=== PATIENT | female | born 1970 | race Caucasian/White ===

== ENCOUNTER → 2017-11-23 | Emergency (ER) | payer OTHER, MEDICARE ==
[~2017-11-23] VITALS: Ht 152.4 cm; Wt 61.2 kg
[~2017-11-23] MED LIST: DILANTIN100 M1 PO; FOLIC ACID1 M1 PO; Glucometer; HYDROXYZINE HCL25 M2 PO; METHADONE HCL5 MG PO; OXYCODONE HCL15 M1 PO; PHENOBARBITAL32.4 M1 PO; PROAIR HFA8.5 GM INH; [UNRECOGNIZED DRUG - SUPPLY]
--- NOTE | 2017-11-23 01:43 | ED AMS/SEIZURE/WEAK/DIZZY ---
History of Present Illness General Chief Complaint: Seizure Stated Complaint: BIBA SEIZURE Source: patient, EMS, friend Exam Limitations: no limitations Vital Signs & Intake/Output Vital Signs & Intake/Output Vital Signs Date Time Temp Pulse Resp B/P B/P Pulse O2 O2 Flow FiO2 Mean Ox Delivery Rate 11/23 0350 84 16 117/75 95 Room Air 11/23 0112 98 Room Air Room Air 11/23 0110 98.2 110 16 131/65 98 Room Air Allergies Coded Allergies: gluten (Intermediate, CELIAC'S DISEASE 08/20/17) latex (Intermediate, RASH 08/20/17) Penicillins (UNKNOWN 08/20/17) Triage Note: 47YO FEMALE TO RM 9 VIA AMB FROM HOME SP SEIZURE TONITE. PT'S BOYFRIEND STATES "PT HAD SEIZURE ACTIVITY X 2 MIN" UPON ARRIVAL A,A,O. PT HAD EPISODE OF VOMITING WHILE SEIZURE WAS OCCURRING. Triage Nurses Notes Reviewed? yes HPI: 47-year-old female with past medical history of seizures and back pain brought to ED by EMS with chief complaint of seizure episode. She was tearful while giving information. Patient reported that she was in her usual state of health since this evening. She was in her bed and feeling cold. Her boyfriend gave her blanket and all of sudden she started to have seizure-like activity that was witnessed by her boyfriend. According to her boyfriend who is on the bedside he told me that she had seizure-like activity for 2 minutes and that went away by itself. Patient denied any aura like symptoms before seizures. Patient denied any tongue bite or urinary or stool incontinence. Patient was feeling confused after seizure activity and having headache. She reported that she is compliant to her seizure medications. Patient denied chest pain, palpitation, nausea, diarrhea, constipation, abdominal pain, trauma, tongue bite, aura, urinary incontinence, bowel incontinence, trauma to head, blurry vision, fever and dysuria. According to her boyfriend she had multiple episodes of vomiting during seizure activity. But patient didn't know about this. According to her boyfriend patient has seizure activity every night before she went to sleep. Patient is seeing her neurologist for seizure medicine. Patient denied any use of alcohol. (Jason CAAL,[place]) Reconcile Medications Albuterol Sulfate (Proair Hfa) 90 MCG HFA.AER.AD 2 PUF INH Q4-6 PRN PRN SHORTNESS OF BREATH (Reported) Folic Acid 1 MG TABLET 1 TAB PO DAILY VITAMIN SUPPORT (Reported) [Glucometer] use as directed [Glucometer test stri] Use test strips as directed Hydroxyzine Hydrochloride (Atarax) 25 MG TAB 1 TAB PO BID PRN anxiety Methadone HCl 5 MG TABLET 1 TAB PO BIDP PRN PAIN (Reported) Oxycodone HCl 15 MG TABLET 1 TAB PO TIDPRN PRN PAIN (Reported) Phenobarbital 32.4 MG TABLET 3 TAB PO QPM SEIZURES (Reported) Phenytoin (Dilantin) 100 MG CAPSULE 1 CAP PO DAILY SEIZURES (Reported) Phenytoin (Dilantin) 100 MG CAPSULE 2 CAP PO QPM SEIZURES (Reported) (Katalina CAAL,Kwesi Shaw) Past History Travel History Traveled to [place] past 21 day No Medical History Any Pertinent Medical History? 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 No (Jason CAAL,[place]) Review of Systems Review of Systems Constitutional: Denies: chills, fever, weakness. EENTM: Reports: see HPI. Respiratory: Denies: cough, orthopnea, short of breath, sputum production, wheezing. Cardiovascular: Denies: chest pain, orthopena, palpitations, syncope. GI: Reports: vomiting. Denies: abdominal pain, constipation, diarrhea, nausea. Genitourinary: Reports: no symptoms. Musculoskeletal: Reports: back pain. Neurological/Psychological: Reports: headache, tonic-clonic seizures. (Jason CAAL,[place]) Physical Exam Physical Exam General Appearance: well developed/nourished, no apparent distress, alert, awake Head: atraumatic, normal appearance Eyes: Bilateral: normal appearance, PERRL, EOMI. Ears, Nose, Throat: normal pharynx, normal ENT inspection, hearing grossly normal Neck: normal inspection, supple Respiratory: normal breath sounds, chest non-tender Cardiovascular: regular rate/rhythm Gastrointestinal: normal bowel sounds, soft, non-tender Back: normal inspection, normal range of motion Extremities: normal range of motion Neurologic/Psych: no motor/sensory deficits, awake, alert, oriented x 3 Core Measures ACS in differential dx? No CVA/TIA Diagnosis No Sepsis Present: No Sepsis Focused Exam Completed? No (Randall Gomez MD) Progress Differential Diagnosis: hypoglycemia, hypoxia, seizure disorder Initial ED EKG: none Comments: 47-year-old female with past medical history of seizures and back pain brought to ED by EMS with chief complaint of seizure episode. We will check BEP for electrolyte and prolactin level. We will check phenytoin level. We will reevaluate the patient again. She was complaining of leg cramps possibly due to electrolyte imbalance. We will check chest x-ray to rule out aspiration pneumonia and she had vomiting during seizure activity. We will check her blood sugar level again as patient reported having hypoglycemia that can trigger seizure activity. Her lab tests are normal. Her prolactin level is normal. Her phyn[place] level is low. Patient was complaining of nonspecific abdominal pain and back pain. We will follow CT scan abdomen results. Patient was complaining of nausea for which she received Phenergan and for anxiety she was given ativan. If her CAT scan results come back negative we will discharge the patient. Her CAT scan came back negative for occult to discharge the patient on hydroxyzine for anxiety. Patient is advised to see her primary care physician in one week and neurologist in 1 week. (Jason CAAL,Randall) Plan of Care: Orders Procedure Date/time Status PROLACTIN 11/23 144 Complete PHENYTOIN 11/23 144 Complete CBC WITHOUT DIFFERENTIAL 11/23 144 Complete BASIC ELECTROLYTES PLUS BUN&CR 11/23 144 Complete FingerStick- Glucose 11/23 UNK Active Laboratory Tests 11/23/17 0206: Anion Gap 10, Estimated GFR > 60, BUN/Creatinine Ratio 15.7, Prolactin 13.1, CBC w Diff NO MAN DIFF REQ, RBC 4.12 L, MCV 89.6, MCH 30.4, MCHC 33.9, RDW 13.9, MPV 7.9, Gran % 65.2, Lymphocytes % 22.7, Monocytes % 9.4 H, Eosinophils % 1.8, Basophils % 0.9, Absolute Granulocytes 4.4, Absolute Lymphocytes 1.5, Absolute Monocytes 0.6, Absolute Eosinophils 0.1, Absolute Basophils 0.1, Phenytoin 7.6 L Diagnostic Imaging: Discussed w/RAD: CT Scan. Radiology Impression: PATIENT: ORIANA SOLOMON PRESENT AGE: 47 PATIENT ACCOUNT NO: [id number] : 69 LOCATION: ER ORDERING PHYSICIAN: Randall Gomez MD SERVICE DATE: 11/23/17- EXAM TYPE: CAT - CT ABD & PELVIS W/O IV CONTRAS EXAMINATION: CT ABDOMEN AND PELVIS WITHOUT CONTRAST CLINICAL INFORMATION: Abdominal pain and nausea COMPARISON: 03/15/2017 TECHNIQUE : Multidetector volumetric imaging was performed from the superior aspect of the liver through the pubic symphysis. Sagittal and coronal reformatted images were obtained on the technologist's workstation. DLP: 336.58 mGy-cm FINDINGS: LUNG BASES: The visualized lung bases are unremarkable. LIVER, GALLBLADDER, AND BILIARY TREE: The liver is normal in size, shape, and attenuation. No focal hepatic lesion or biliary ductal dilatation is present. The gallbladder is unremarkable with no evidence of radiopaque gallstones, gallbladder wall thickening, or obvious pericholecystic inflammatory changes. PANCREAS: Unremarkable. SPLEEN: Unremarkable. ADRENAL GLANDS: Unremarkable. KIDNEYS AND URETERS: The kidneys are normal in size, shape, and attenuation. No hydronephrosis, hydroureter, or calculi seen. No perinephric stranding. BLADDER: Unremarkable. GASTROINTESTINAL TRACT: The small and large bowel are unremarkable. The appendix is unremarkable. No free fluid or free air is seen. ABDOMINAL WALL: No significant hernia is appreciated. LYMPH NODES: Normal. VASCULAR: Unremarkable. PELVIC VISCERA: Unremarkable. OSSEOUS STRUCTURES: Endplate osteophytes are noted in the lumbar spine, most prominently at L4. IMPRESSION: No acute findings identified in the abdomen/pelvis. DICTATED BY: Cheko Mckeon MD DATE/TIME DICTATED:11/23/17440 CLIENT RETENTION SPECIALIST:ALAN DATE/TIME TRANSCRIBED:11/23/17440 CONFIDENTIAL, DO NOT COPY WITHOUT APPROPRIATE AUTHORIZATION. <Electronically signed in Other Vendor System> SIGNED BY: Cheko Mckeon MD 11/23/17 0452 CXR Impression: PATIENT: ORIANA SOLOMON PRESENT AGE: 47 PATIENT ACCOUNT NO: [id number] : 69 LOCATION: ER ORDERING PHYSICIAN: Randall Gomez MD SERVICE DATE: 11/23/17-0155 EXAM TYPE: RAD - XRY-PORTABLE CHEST XRAY EXAMINATION: XR PORTABLE CHEST CLINICAL INFORMATION: Seizures and vomiting COMPARISON: None TECHNIQUE: Portable frontal view of the chest was obtained. FINDINGS: The lungs are clear with no focal consolidation. No evidence of pneumothorax, pulmonary edema, or pleural effusions. The cardiomediastinal silhouette is unremarkable. No acute osseous findings. IMPRESSION: No acute cardiopulmonary findings. DICTATED BY: Cheko Mckeon MD DATE/TIME DICTATED:235 CLIENT RETENTION SPECIALIST:ALAN DATE/TIME TRANSCRIBED:11/23/17235 CONFIDENTIAL, DO NOT COPY WITHOUT APPROPRIATE AUTHORIZATION. <Electronically signed in Other Vendor System> SIGNED BY: Cheko Mckeon MD 11/23/170 (Kwesi Darden MD) Departure Departure Disposition: HOME OR SELF CARE Condition: Stable Clinical Impression Primary Impression: Anxiety Secondary Impressions: Nonspecific abdominal pain Referrals: Patient Has No Primary Care Dr (PCP/Family) Additional Instructions: Please follow up with her primary care physician in one week. Please follow up with your neurologist in 1 week. Please take sure seizure medications regularly. If patient condition worsens or he experiences any episodes of seizures please come to ED. Departure Forms: Customer Survey General Discharge Information Prescriptions: Current Visit Scripts Hydroxyzine Hydrochloride (Atarax) 1 TAB PO BID PRN anxiety #20 TAB (Jason CAAL,[place]) Resident Co-Sign Statement Statement: ED Attending supervision documentation- [X] I saw and evaluated the patient. I have also reviewed all the pertinent lab results and diagnostic results. I agree with the findings and the plan of care as documented in the Resident's documentation. [] I have reviewed the ED Record and agree with the Resident's documentation. [] Additions or exceptions (if any) to the Resident's note and plan are summarized below: [] (Katalina CAAL,Kwesi Shaw)
[2017-11-23 02:16] LABS: ABSOLUTE BASOPHIL COUNT 0.1 /CUMM (0.0-0.2); ABSOLUTE EOSINOPHIL COUNT 0.1 /CUMM (0.0-0.7); ABSOLUTE GRANULOCYTE CT 4.4 /CUMM (1.4-6.5); ABSOLUTE LYMPH COUNT 1.5 /CUMM (1.2-3.4); ABSOLUTE MONOCYTE COUNT 0.6 /CUMM (0.10-0.60); BASOPHIL % 0.9 % (0.0-2.0); EOSINOPHIL % 1.8 % (0-5); GRANULOCYTE % 65.2 % (42.2-75.2); HEMATOCRIT 36.9 % (37-47); MEAN CORPUSCULAR HGB 30.4 PG (27.0-31.0); MEAN CORPUSCULAR HGB CONC 33.9 G/DL (33.0-37.0); MEAN CORPUSCULAR VOLUME 89.6 FL (81.0-99.0); MEAN PLATELET VOLUME 7.9 FL (7.4-10.4); PLATELET COUNT 300 /CUMM (130-400); RBC DISTRIBUTION WIDTH 13.9 % (11.5-14.5); RED BLOOD CELL CT 4.12 /CUMM (4.20-5.40); WHITE BLOOD CELL COUNT 6.8 /CUMM (4.8-10.8)
--- NOTE | 2017-11-23 02:40 | RADIOLOGY REPORT ---
EXAMINATION: XR PORTABLE CHEST CLINICAL INFORMATION: Seizures and vomiting COMPARISON: None TECHNIQUE: Portable frontal view of the chest was obtained. FINDINGS: The lungs are clear with no focal consolidation. No evidence of pneumothorax, pulmonary edema, or pleural effusions. The cardiomediastinal silhouette is unremarkable. No acute osseous findings. IMPRESSION: No acute cardiopulmonary findings.
[2017-11-23 03:50] VITALS: BP 117/75
--- NOTE | 2017-11-23 04:52 | CT SCAN REPORT ---
EXAMINATION: CT ABDOMEN AND PELVIS WITHOUT CONTRAST CLINICAL INFORMATION: Abdominal pain and nausea COMPARISON: 03/15/2017 TECHNIQUE: Multidetector volumetric imaging was performed from the superior aspect of the liver through the pubic symphysis. Sagittal and coronal reformatted images were obtained on the technologist's workstation. DLP: 336.58 mGy-cm FINDINGS: LUNG BASES: The visualized lung bases are unremarkable. LIVER, GALLBLADDER, AND BILIARY TREE: The liver is normal in size, shape, and attenuation. No focal hepatic lesion or biliary ductal dilatation is present. The gallbladder is unremarkable with no evidence of radiopaque gallstones, gallbladder wall thickening, or obvious pericholecystic inflammatory changes. PANCREAS: Unremarkable. SPLEEN: Unremarkable. ADRENAL GLANDS: Unremarkable. KIDNEYS AND URETERS: The kidneys are normal in size, shape, and attenuation. No hydronephrosis, hydroureter, or calculi seen. No perinephric stranding. BLADDER: Unremarkable. GASTROINTESTINAL TRACT: The small and large bowel are unremarkable. The appendix is unremarkable. No free fluid or free air is seen. ABDOMINAL WALL: No significant hernia is appreciated. LYMPH NODES: Normal. VASCULAR: Unremarkable. PELVIC VISCERA: Unremarkable. OSSEOUS STRUCTURES: Endplate osteophytes are noted in the lumbar spine, most prominently at L4. IMPRESSION: No acute findings identified in the abdomen/pelvis.
== END ==
LOC: ERH 00:56
PROVIDERS: Student in an Organized Health Care Education/Training Program
DX: F41.9 Anxiety disorder, unspecified (principal); R10.9 Unspecified abdominal pain; R56.9 Unspecified convulsions
CPT/HCPCS: 71045; 74176; 82436; 96374; 96375; J2550